=== PATIENT | female | born 1940 | race Hispanic/Latino ===

== ENCOUNTER 2019-11-19 15:53 | Emergency (ER) | payer MEDICARE ==
[~2019-11-19] VITALS: Ht 154.9 cm; Wt 58.1 kg
[2019-11-19 17:46] LABS: BASOPHILS # (AUTO) 0.1 (0.0-0.1); BASOPHILS % 0.9 % (0.0-1.0); EOSINOPHILS # (AUTO) 0.2 (0.0-0.4); EOSINOPHILS % 1.8 % (0.0-6.0); HEMATOCRIT 38.9 % (34.2-44.1); HEMOGLOBIN 12.7 g/dL (12.0-16.0); LYMPHOCYTES # (AUTO) 1.8 (1.0-3.2); LYMPHOCYTES % 21.5 % (18.0-39.1); MEAN CORPUSCULAR HGB CONC 32.6 g/dL (31-35); MONOCYTES # (AUTO) 0.6 (0.2-0.8); MONOCYTES % 7.1 % (4.4-11.3); NEUTROPHILS # (AUTO) 5.6 (2.1-6.9); NEUTROPHILS % 68.5 % (38.7-80.0); PLATELET COUNT 321 x10e3/uL (140-360); RED BLOOD COUNT 4.23 x10e6/uL (3.6-5.1); RED CELL DISTRIBUTION WIDTH 14.1 % (11.7-14.4)
[2019-11-19 17:59] LABS: CLARITY,URINE SL CLOUDY (CLEAR); COLOR,URINE YELLOW (YELLOW); LEUKOCYTE ESTERASE ,URINE SMALL (NEGATIVE); NITRITE,URINE NEGATIVE (NEGATIVE); PROTEIN,URINE DIPSTICK 1+ (NEGATIVE)
[2019-11-19 18:00] LABS: ALANINE AMINOTRANSFERASE 13 IU/L (0-55); ALBUMIN 4.2 g/dL (3.5-5.0); ALBUMIN/GLOBULIN RATIO 1.2 (0.8-2.0); ALKALINE PHOSPHATASE 68 IU/L (40-150); ANION GAP 14.2 mmol/L (8-16); BILIRUBIN,URINE NEGATIVE (NEGATIVE); BLOOD UREA NITROGEN 14 mg/dL (7-26); BUN/CREATININE RATIO 18 (6-25); CARBON DIOXIDE 28 mmol/L (22-29); CHLORIDE 101 mmol/L (98-107); CREATININE, SERUM 0.77 mg/dL (0.57-1.11); EST GLOMERULAR FILTRATION RATE > 60 ML/MIN (60-); GLUCOSE 156 mg/dL (74-118); KETONES,URINE NEGATIVE (NEGATIVE); POTASSIUM 4.2 mmol/L (3.5-5.1); PREGNANCY TEST, URINE NEGATIVE (NEGATIVE); SODIUM 139 mmol/L (136-145); URINE UROBILINOGEN 0.2 mg/dL (0.2 - 1)
[2019-11-19 18:07] LABS: BACTERIA,URINE RARE /HPF; EPITHELIAL CELLS,URINE FEW /LPF
--- NOTE | 2019-11-19 18:47 | Emergency Department Note ---
History of Present Illnes History of Present Illness Chief Complaint: Genitourinary History of Present Illness This is a 79 year old female arrived to the ED with complaints of blood in her urine. Patient states she has been treated for UTIs in the past month with no resolution of symptoms. Patient states the bleeding is intermittent and she is worried that her UTI is not resolving. Patient denies any fever or chills or flank pain. Chief Complaint Comment PATIENT IN FROM HOME WITH COMPLAINTS OF UTI X 1 MONTH, STATES SHE FINISHED HER ANTIBIOTIC AND NOW SHE HAS BLOOD IN HER URINE. PATIENT APPEARS IN NO DISTRESS, RESP EVEN AND NONLABORED, RESP EVEN AND NONLABORED, ALSO WITH COMPLAINTS OF BURNING WITH URINATION, RATES PAIN 5/10 Historian: Patient Arrival Mode: Car Onset (how long ago): month(s) Radiation: Reports non-radiation Severity: mild Onset quality: gradual Duration (how long): month(s) Timing of current episode: constant Progression: worsening Chronicity: chronic Relieving factors: none Exacerbating factors: none (KOREY BECKFORD DO) Past Medical/Family History Physician Review I have reviewed the patient's past medical and family history. Any updates have been documented here. (KOREY BECKFORD DO) Past Medical History Recent Fever: No Clinical Suspicion of Infectio: No New/Unexplained Change in Ment: No Past Medical History: Hypertension, Cancer Other Medical History: KIDNEY CANCER Other Surgery: KIDNEY TUMOR REMOVAL LEFT HIP SURGERY (KOREY BECKFORD DO) Social History Smoking Cessation: Never Smoker Alcohol Use: None Any Illegal Drug Use: No TB Exposure/Symptoms: No Physically hurt or threatened: No (KOREY BECKFORD DO) Family History Family history of heart diseas: No (KOREY BECKFORD DO) Other Last Tetanus: UNKNOWN Any Pre-Existing Lines (PICC,: No Is patient up to date on immun: Yes Last Flu: 06/2019 Last Pneumovax: UNKNOWN (KOREY BECKFORD DO) Review of Systems Review of Systems Constitutional: Reports no symptoms EENTM: Reports no symptoms Cardiovascular: Reports no symptoms Respiratory: Reports no symptoms Gastrointestinal: Reports no symptoms Genitourinary: Reports as per HPI Musculoskeletal: Reports no symptoms Integumentary: Reports no symptoms Neurological: Reports no symptoms Psychological: Reports no symptoms Endocrine: Reports no symptoms Hematological/Lymphatic: Reports no symptoms Review of other systems: All other systems negative (KOREY BECKFORD, ) Physical Exam Related Data Allergies: Coded Allergies: No Known Allergies (Unverified , 11/19/19) Triage Vital Signs Vital Signs Date Time Temp Pulse Resp B/P (MAP) Pulse Ox O2 Delivery O2 Flow Rate FiO2 11/19/19 16:30 98.1 86 16 151/74 97 Vital signs reviewed: Yes (KOREY BECKFORD, ) Physical Exam CONSTITUTIONAL Constitutional: Present well-developed, Present well-nourished HENT HENT: Present normocephalic, Present atraumatic, Present oropharynx clear/moist, Present nose normal HENT L/R: Present left ext ear normal, Present right ext ear normal EYES Eyes: Reports PERRL, Reports conjunctivae normal NECK Neck: Present ROM normal PULMONARY Pulmonary: Present effort normal, Present breath sounds normal CARDIOVASCULAR Cardiovascular: Present regular rhythm, Present heart sounds normal, Present capillary refill normal, Present normal rate GASTROINTESTINAL Abdominal: Present soft, Present nontender, Present bowel sounds normal GENITOURINARY Genitourinary: Present exam deferred SKIN Skin: Present warm, Present dry MUSCULOSKELETAL Musculoskeletal: Present ROM normal NEUROLOGICAL Neurological: Present alert, Present oriented x 3, Present no gross motor or sensory deficits PSYCHOLOGICAL Psychological: Present mood/affect normal, Present judgement normal (KOREY BECKFORD, ) Results Laboratory Result Diagram: 11/19/19 1732 11/19/19 1732 Laboratory Laboratory Tests Test 11/19/19 17:32 White Blood Count 8.17 x10e3/uL (4.8-10.8) Red Blood Count 4.23 x10e6/uL (3.6-5.1) Hemoglobin 12.7 g/dL (12.0-16.0) Hematocrit 38.9 % (34.2-44.1) Mean Corpuscular Volume 92.0 fL (81-99) Mean Corpuscular Hemoglobin 30.0 pg (28-32) Mean Corpuscular Hemoglobin Concent 32.6 g/dL (31-35) Red Cell Distribution Width 14.1 % (11.7-14.4) Platelet Count 321 x10e3/uL (140-360) Neutrophils (%) (Auto) 68.5 % (38.7-80.0) Lymphocytes (%) (Auto) 21.5 % (18.0-39.1) Monocytes (%) (Auto) 7.1 % (4.4-11.3) Eosinophils (%) (Auto) 1.8 % (0.0-6.0) Basophils (%) (Auto) 0.9 % (0.0-1.0) Neutrophils # (Auto) 5.6 (2.1-6.9) Lymphocytes # (Auto) 1.8 (1.0-3.2) Monocytes # (Auto) 0.6 (0.2-0.8) Eosinophils # (Auto) 0.2 (0.0-0.4) Basophils # (Auto) 0.1 (0.0-0.1) Absolute Immature Granulocyte (auto 0.02 x10e3/uL (0-0.1) Urine Color Yellow (YELLOW) Urine Clarity Sl cloudy (CLEAR) Urine pH 5.5 (5 - 7) Urine Specific [place] 1.025 (1.010-1.025) Urine Protein 1+ (NEGATIVE) Urine Glucose (UA) 1+ (NEGATIVE) Urine Ketones Negative (NEGATIVE) Urine Blood Small (NEGATIVE) Urine Nitrite Negative (NEGATIVE) Urine Bilirubin Negative (NEGATIVE) Urine Urobilinogen 0.2 mg/dL (0.2 - 1) Urine Leukocyte Esterase Small (NEGATIVE) Urine RBC 6-10 /HPF (0-5) Urine WBC 6-10 /HPF (0-5) Urine Epithelial Cells Few /LPF (NONE) Urine Bacteria Rare /HPF (NONE) Urine Test Negative (NEGATIVE) Sodium Level 139 mmol/L (136-145) Potassium Level 4.2 mmol/L (3.5-5.1) Chloride Level 101 mmol/L (98-107) Carbon Dioxide Level 28 mmol/L (22-29) Anion Gap 14.2 mmol/L (8-16) Blood Urea Nitrogen 14 mg/dL (7-26) Creatinine 0.77 mg/dL (0.57-1.11) Estimat Glomerular Filtration Rate > 60 ML/MIN (60-) BUN/Creatinine Ratio 18 (6-25) Glucose Level 156 mg/dL (74-118) Calcium Level 10.0 mg/dL (8.4-10.2) Total Bilirubin 0.8 mg/dL (0.2-1.2) Aspartate Amino Transf (AST/SGOT) 18 IU/L (5-34) Alanine Aminotransferase (ALT/SGPT) 13 IU/L (0-55) Alkaline Phosphatase 68 IU/L (40-150) Total Protein 7.8 g/dL (6.5-8.1) Albumin 4.2 g/dL (3.5-5.0) Globulin 3.6 g/dL (2.3-3.5) Albumin/Globulin Ratio 1.2 (0.8-2.0) Lab results reviewed: Yes (KOREY BECKFORD DO) Imaging Imaging results reviewed: Yes Impressions To be followed by Dr. Wilson (KOREY BECKFORD DO) Imaging results reviewed: Yes Impressions [place] [id number] Patient Name: ANU MUNGUIA MR #: [id number] : 1940 Age/Sex: 79/F Req #: [id number] Adm Physician: Ordered by: KOREY BECKFORD DO Report #: [id number] Location: ER Room/Bed: Procedure: CT/CT ABDOMEN/PELVIS W Exam Date: 11/19/19 Exam Time: 1929 REPORT STATUS: Signed EXAM: CT Abdomen and Pelvis WITH contrast INDICATION: Hematuria, bladder mass COMPARISON: None. TECHNIQUE: Abdomen and pelvis were scanned utilizing a multidetector helical scanner from the lung base to the pubic symphysis after administration of IV contrast. Coronal and sagittal reformations were obtained. Routine protocol was performed. Scan was performed when during portal venous phase. IV CONTRAST: 100 mL of Isovue 370 ORAL CONTRAST: None COMPLICATIONS: None RADIATION DOSE: Total DLP: 306 mGy*cm Estimated effective dose: (DLP x 0.015 x size factor) mSv CTDIvol has been reviewed. It is below the limits set by the Radiation Protocol Committee (RPC). Dose modulation, iterative reconstruction, and/or weight based adjustment of the mA/kV was utilized to reduce the radiation dose to as low as reasonably achievable. FINDINGS: LINES and TUBES: None. LOWER THORAX: Triple vessel coronary artery calcific atherosclerosis. HEPATOBILIARY: No focal hepatic lesions. There is intra- and extra- hepatic biliary dilation , the common bile duct is 2.1 cm in diameter. GALLBLADDER: Absent SPLEEN: No splenomegaly. PANCREAS: No focal masses or ductal dilatation. ADRENALS: No adrenal nodules KIDNEYS/URETERS: Kidneys enhance symmetrically. No hydronephrosis. Benign-appearing cysts. Left renal superior pole scarring/volume loss. No stones. A 1.5 cm soft tissue dense round lesion in the interpolar region of the left kidney. A smaller hypodensity in the interpolar region of the right kidney. GI TRACT: No abnormal distention, wall thickening, or evidence of bowel obstruction. Colonic diverticuli without diverticulitis. Appendix is normal. PELVIC ORGANS/BLADDER: Pessary device in place. Hysterectomy. No adnexal masses. Urinary bladder unremarkable. LYMPH NODES: No lymphadenopathy. VESSELS: Arterial vascular calcifications. PERITONEUM / RETROPERITONEUM: No free air or fluid. BONES: Osseous demineralization. Degenerative changes. Proximal left femoral hardware intact. SOFT TISSUES: Unremarkable. IMPRESSION: 1. An indeterminate 1.5 cm soft tissue dense round lesion in the left kidney, could be a benign or complicated cyst or neoplasm. Recommend nonemergent multiphase contrast enhanced renal mass MRI for further evaluation. Left renal superior pole scarring/volume loss. 2. Triple vessel coronary artery calcific atherosclerosis. 3. Dilated biliary tree is likely due to chronic benign reservoir effect from remote cholecystectomy, correlate for cholestasis. 4. Colonic diverticulosis without diverticulitis. Signed by: King Lau DO on 11/19/2019 8:43 PM Dictated By: KING LAU DO 42 Transcribed By: ANEUDY on 11/19/192042 COPY TO: KOREY BECKFORD DO~ (RADHA WILSON DO) Assessment & Plan Medical Decision Making MDM 79-year-old well-appearing pleasant female arrived to the ED with complaints of continued hematuria for several months. Patient with a history of kidney cancer and there is concerns of possible bladder malignancy/mass. Patient hemodynamically stable with a normal hemoglobin/hematocrit. Urinalysis reviewed which shows RBCs, WBCs leukoesterase. CT abdomen and pelvis ordered. Sign out given to Dr. Wilson to follow-up CT abdomen and pelvis and ultimate disposition of patient. (KOREY BECKFORD DO) MDM 79 yof with hematuria . CTS ordered to evaluate for malignancy and interstitial cystitis. Patient to be discharged to home with f/u with Urology . Rx Ciprofloxacin (RADHA WILSON DO) Assessment & Plan Final Impression: (1) Hematuria (KOREY BECKFORD DO) Depart Disposition: HOME, SELF-CARE Last Vital Signs Date Time Temp Pulse Resp B/P (MAP) Pulse Ox O2 Delivery O2 Flow Rate FiO2 11/19/19 18:33 72 18 144/86 99 11/19/19 17:47 96.6 (KOREY BECKFORD DO) KOREY BECKFORD DO Nov 19, 2019 18:29 RADHA IWLSON DO Nov 19, 2019 21:18
[2019-11-19] MEDS ORDERED: IOPAMIDOL 370 MG/ML 200 ML INFUS..BTL INJ ONE (19:20)
[2019-11-19] MEDS ORDERED: SODIUM CHLORIDE 0.9% 50ML 50 ML ONE (19:20)
--- NOTE | 2019-11-19 20:46 | Diagnostic Imaging Report ---
EXAM: CT Abdomen and Pelvis WITH contrast INDICATION: Hematuria, bladder mass COMPARISON: None. TECHNIQUE: Abdomen and pelvis were scanned utilizing a multidetector helical scanner from the lung base to the pubic symphysis after administration of IV contrast. Coronal and sagittal reformations were obtained. Routine protocol was performed. Scan was performed when during portal venous phase. IV CONTRAST: 100 mL of Isovue 370 ORAL CONTRAST: None COMPLICATIONS: None RADIATION DOSE: Total DLP: 306 mGy*cm Estimated effective dose: (DLP x 0.015 x size factor) mSv CTDIvol has been reviewed. It is below the limits set by the Radiation Protocol Committee (RPC). Dose modulation, iterative reconstruction, and/or weight based adjustment of the mA/kV was utilized to reduce the radiation dose to as low as reasonably achievable. FINDINGS: LINES and TUBES: None. LOWER THORAX: Triple vessel coronary artery calcific atherosclerosis. HEPATOBILIARY: No focal hepatic lesions. There is intra- and extra- hepatic biliary dilation , the common bile duct is 2.1 cm in diameter. GALLBLADDER: Absent SPLEEN: No splenomegaly. PANCREAS: No focal masses or ductal dilatation. ADRENALS: No adrenal nodules KIDNEYS/URETERS: Kidneys enhance symmetrically. No hydronephrosis. Benign-appearing cysts. Left renal superior pole scarring/volume loss. No stones. A 1.5 cm soft tissue dense round lesion in the interpolar region of the left kidney. A smaller hypodensity in the interpolar region of the right kidney. GI TRACT: No abnormal distention, wall thickening, or evidence of bowel obstruction. Colonic diverticuli without diverticulitis. Appendix is normal. PELVIC ORGANS/BLADDER: Pessary device in place. Hysterectomy. No adnexal masses. Urinary bladder unremarkable. LYMPH NODES: No lymphadenopathy. VESSELS: Arterial vascular calcifications. PERITONEUM / RETROPERITONEUM: No free air or fluid. BONES: Osseous demineralization. Degenerative changes. Proximal left femoral hardware intact. SOFT TISSUES: Unremarkable. IMPRESSION: 1. An indeterminate 1.5 cm soft tissue dense round lesion in the left kidney, could be a benign or complicated cyst or neoplasm. Recommend nonemergent multiphase contrast enhanced renal mass MRI for further evaluation. Left renal superior pole scarring/volume loss. 2. Triple vessel coronary artery calcific atherosclerosis. 3. Dilated biliary tree is likely due to chronic benign reservoir effect from remote cholecystectomy, correlate for cholestasis. 4. Colonic diverticulosis without diverticulitis. Signed by: King Lau DO on 11/19/2019 8:43 PM
== END 2019-11-19 21:45 | disposition home or self-care (01) ==
LOC: ER 15:53
DX: R31.9 Hematuria, unspecified (principal); I10 Essential (primary) hypertension; Z85.528 Personal history of other malignant neoplasm of kidney
CPT/HCPCS: 36415; 74177; 80053; 81001; 81025; 85025; 99283; Q9967

== ENCOUNTER 2020-04-02 12:19 | Emergency (ER) | payer MEDICARE ==
[~2020-04-02] VITALS: Ht 154.9 cm; Wt 58.1 kg
[2020-04-02 13:50] LABS: CLARITY,URINE TURBID (CLEAR); COLOR,URINE YELLOW (YELLOW); KETONES,URINE NEGATIVE (NEGATIVE); LEUKOCYTE ESTERASE ,URINE TRACE (NEGATIVE); NITRITE,URINE NEGATIVE (NEGATIVE); PROTEIN,URINE DIPSTICK 2+ (NEGATIVE); URINE UROBILINOGEN 0.2 mg/dL (0.2 - 1)
[2020-04-02 13:51] LABS: BILIRUBIN,URINE SMALL (NEGATIVE)
[2020-04-02 14:10] LABS: BACTERIA,URINE MODERATE /HPF; EPITHELIAL CELLS,URINE MODERATE /LPF
[2020-04-02 14:29] VITALS: BP 132/56
[2020-04-02] MEDS ORDERED: TRIMETHOPRIM/SULFAMETHOXAZOLE 160-800 MG TAB PO ONE (14:30)
[2020-04-02] MEDS ORDERED: BACTRIM DS TAB1 EACH PO (14:32)
== END 2020-04-02 14:35 | disposition home or self-care (01) ==
LOC: ER 12:35
DX: N39.0 Urinary tract infection, site not specified (principal); R30.0 Dysuria; I10 Essential (primary) hypertension; Z85.528 Personal history of other malignant neoplasm of kidney
CPT/HCPCS: 81001; 87086; 87186; 99283

== ENCOUNTER 2021-04-06 17:49 | Emergency (ER) | payer MEDICARE ==
[~2021-04-06] VITALS: Ht 154.9 cm; Wt 58.1 kg
[~2021-04-06 17:49] MED LIST: BACTRIM DS TAB1 EACH PO
[2021-04-06 19:15] LABS: CLARITY,URINE HAZY (CLEAR); COLOR,URINE AMBER (YELLOW); KETONES,URINE TRACE (NEGATIVE); LEUKOCYTE ESTERASE ,URINE LARGE (NEGATIVE); NITRITE,URINE POSITIVE (NEGATIVE); PROTEIN,URINE DIPSTICK 1+ (NEGATIVE); URINE UROBILINOGEN 1 mg/dL (0.2 - 1)
[2021-04-06 19:16] LABS: WBC,URINE (MAN) >50 /HPF (0-5)
[2021-04-06 19:23] LABS: BACTERIA,URINE MODERATE /HPF; RBC,URINE 21-50 /HPF (0-5)
[2021-04-06 19:24] LABS: AMORPHOUS SEDIMENT,URINE FEW (FEW); EPITHELIAL CELLS,URINE MODERATE /LPF; MUCUS,URINE FEW (RARE)
== END 2021-04-06 20:00 | disposition home or self-care (01) ==
LOC: ER 17:58
DX: N39.0 Urinary tract infection, site not specified (principal); K57.30 Diverticulosis of large intestine without perforation or abscess without bleeding
CPT/HCPCS: 74176; 81001; 99283

== ENCOUNTER 2021-05-28 11:00 | Emergency (ER) | payer MEDICARE ==
[~2021-05-28] VITALS: Ht 154.9 cm; Wt 58.1 kg
[2021-05-28 11:55] LABS: BASOPHILS # (AUTO) 0.1 (0.0-0.1); BASOPHILS % 0.8 % (0.0-1.0); EOSINOPHILS # (AUTO) 0.2 (0.0-0.4); EOSINOPHILS % 2.3 % (0.0-6.0); HEMOGLOBIN 12.9 g/dL (12.0-16.0); LYMPHOCYTES # (AUTO) 0.5 (1.0-3.2); LYMPHOCYTES % 5.2 % (18.0-39.1); MEAN CORPUSCULAR HEMOGLOBIN 30.6 pg (28-32); MEAN CORPUSCULAR HGB CONC 32.3 g/dL (31-35); MEAN CORPUSCULAR VOLUME 94.8 fL (81-99); MONOCYTES # (AUTO) 0.8 (0.2-0.8); MONOCYTES % 7.9 % (4.4-11.3); NEUTROPHILS # (AUTO) 8.2 (2.1-6.9); NEUTROPHILS % 83.4 % (38.7-80.0); PLATELET COUNT 334 x10e3/uL (140-360); RED BLOOD COUNT 4.22 x10e6/uL (3.6-5.1); RED CELL DISTRIBUTION WIDTH 13.2 % (11.7-14.4)
[2021-05-28 12:06] LABS: INR 0.85; PROTHROMBIN TIME 12.3 seconds (11.9-14.5)
[2021-05-28 12:13] LABS: ALBUMIN 4.1 g/dL (3.5-5.0); ALBUMIN/GLOBULIN RATIO 1.2 (0.8-2.0); ANION GAP 14.7 mmol/L (8-16); CALCIUM 9.8 mg/dL (8.4-10.2); CREATININE, SERUM 0.72 mg/dL (0.57-1.11); POTASSIUM 3.7 mmol/L (3.5-5.1)
[2021-05-28 12:22] LABS: CREATINE KINASE MB 1.3 ng/mL (0-5.0)
[2021-05-28 12:26] LABS: B-TYPE NATRIURETIC PEPTIDE2 89.8 pg/mL (0-100)
[2021-05-28 12:36] LABS: CLARITY,URINE CLEAR (CLEAR); COLOR,URINE YELLOW (YELLOW); KETONES,URINE NEGATIVE (NEGATIVE); LEUKOCYTE ESTERASE ,URINE NEGATIVE (NEGATIVE); NITRITE,URINE NEGATIVE (NEGATIVE); PROTEIN,URINE DIPSTICK 1+ (NEGATIVE); URINE UROBILINOGEN 0.2 mg/dL (0.2 - 1)
[2021-05-28 12:46] LABS: BACTERIA,URINE FEW /HPF; EPITHELIAL CELLS,URINE FEW /LPF; RBC,URINE 0-5 /HPF (0-5)
== END 2021-05-28 13:34 | disposition home or self-care (01) ==
LOC: ER 11:15
DX: U07.1 COVID-19 (principal); N39.0 Urinary tract infection, site not specified; I10 Essential (primary) hypertension; Z85.528 Personal history of other malignant neoplasm of kidney
CPT/HCPCS: 36415; 71045; 80053; 81001; 82550; 82553; 83605; 83880; 84484; 85025; 85610; 87040; 87086; 87186; 93005; 99284; U0002

== ENCOUNTER 2021-08-20 14:07 | Inpatient (IN) | payer MEDICARE ==
[~2021-08-20] VITALS: Ht 154.9 cm; Wt 58.1 kg
[2021-08-20] MEDS ORDERED: ONDANSETRON HCL INJ 2MG/ML 2ML 2 MG/ML VIAL IV STA (14:18)
[2021-08-20] MEDS ORDERED: SODIUM CHLORIDE 0.9% 1000ML 1,000 ML IV SCH (14:30)
[2021-08-20 14:43] LABS: BASOPHILS % 0.6 % (0.0-1.0); EOSINOPHILS % 0.6 % (0.0-6.0); HEMATOCRIT 40.2 % (34.2-44.1); HEMOGLOBIN 13.3 g/dL (12.0-16.0); LYMPHOCYTES # (AUTO) 0.3 (1.0-3.2); LYMPHOCYTES % 4.8 % (18.0-39.1); MEAN CORPUSCULAR HEMOGLOBIN 31.1 pg (28-32); MEAN CORPUSCULAR HGB CONC 33.1 g/dL (31-35); MEAN CORPUSCULAR VOLUME 94.1 fL (81-99); MONOCYTES # (AUTO) 0.4 (0.2-0.8); MONOCYTES % 6.7 % (4.4-11.3); NEUTROPHILS # (AUTO) 5.6 (2.1-6.9); NEUTROPHILS % 87.1 % (38.7-80.0); PLATELET COUNT 310 x10e3/uL (140-360); RED BLOOD COUNT 4.27 x10e6/uL (3.6-5.1); RED CELL DISTRIBUTION WIDTH 14.2 % (11.7-14.4)
[2021-08-20 15:08] LABS: ALBUMIN 3.9 g/dL (3.5-5.0); ALBUMIN/GLOBULIN RATIO 1.2 (0.8-2.0); CALCIUM 8.6 mg/dL (8.4-10.2); CREATININE, SERUM 0.81 mg/dL (0.57-1.11)
[2021-08-20 15:15] LABS: CREATINE KINASE MB 0.7 ng/mL (0-5.0)
[2021-08-20 15:57] LABS: CLARITY,URINE CLOUDY (CLEAR); COLOR,URINE BROWN (YELLOW); KETONES,URINE TRACE (NEGATIVE); LEUKOCYTE ESTERASE ,URINE SMALL (NEGATIVE); NITRITE,URINE NEGATIVE (NEGATIVE); PROTEIN,URINE DIPSTICK 2+ (NEGATIVE); URINE UROBILINOGEN 0.2 mg/dL (0.2 - 1)
[2021-08-20 16:09] LABS: AMORPHOUS SEDIMENT,URINE MANY (FEW); BACTERIA,URINE FEW /HPF; RBC,URINE 0-5 /HPF (0-5); WBC,URINE (MAN) 0-5 /HPF (0-5)
[2021-08-20] MEDS ORDERED: IBUPROFEN 400 MG TAB PO ONE (17:45)
[2021-08-20] MEDS: SODIUM CHLORIDE 0.9% 1000ML 1,000 ML IV SCH (18:00)
[2021-08-20] MEDS ORDERED: Morphine 4mg Syringe 4 MG/ML INJ IV PRN (18:00)
[2021-08-20] MEDS ORDERED: ONDANSETRON HCL INJ 2MG/ML 2ML 2 MG/ML VIAL IV PRN (18:00)
[2021-08-20] MEDS: IBUPROFEN 400 MG TAB PO PRN (19:08)
[2021-08-20 20:00] VITALS: BP 168/61
[2021-08-20] MEDS ORDERED: HYDRALAZINE HCL 20 MG/ML VIAL IV PRN (20:30)
[2021-08-20] MEDS: METRONIDAZOLE 500MG/NS 100ML 100 ML IV SCH ×2 (21:25→22:00)
[2021-08-20] MEDS: FAMOTIDINE 20 MG/2 ML VIAL IV SCH (21:26)
[2021-08-20 21:44] VITALS: BP 168/61
[2021-08-20 21:54] VITALS: BP 168/61
[2021-08-20 23:06] LABS: CREATINE KINASE MB 0.5 ng/mL (0-5.0)
[2021-08-21] VITALS (9 sets, daily range): BP systolic 99–146; BP diastolic 41–67
[2021-08-21] MEDS: SODIUM CHLORIDE 0.9% 1000ML 1,000 ML IV SCH ×3 (03:08→17:10)
[2021-08-21] MEDS: METRONIDAZOLE 500MG/NS 100ML 100 ML IV SCH ×3 (05:13→22:56)
[2021-08-21 06:11] LABS: BASOPHILS % 0.5 % (0.0-1.0); EOSINOPHILS % 0.2 % (0.0-6.0); HEMATOCRIT 38.8 % (34.2-44.1); HEMOGLOBIN 12.6 g/dL (12.0-16.0); LYMPHOCYTES # (AUTO) 0.7 (1.0-3.2); LYMPHOCYTES % 10.1 % (18.0-39.1); MEAN CORPUSCULAR HEMOGLOBIN 31.3 pg (28-32); MEAN CORPUSCULAR HGB CONC 32.5 g/dL (31-35); MEAN CORPUSCULAR VOLUME 96.3 fL (81-99); MONOCYTES # (AUTO) 0.6 (0.2-0.8); MONOCYTES % 8.9 % (4.4-11.3); NEUTROPHILS # (AUTO) 5.3 (2.1-6.9); PLATELET COUNT 282 x10e3/uL (140-360); RED BLOOD COUNT 4.03 x10e6/uL (3.6-5.1); RED CELL DISTRIBUTION WIDTH 14.5 % (11.7-14.4)
[2021-08-21 06:20] LABS: INR 0.98; PROTHROMBIN TIME 13.9 seconds (11.9-14.5)
[2021-08-21 06:25] LABS: ALBUMIN 3.2 g/dL (3.5-5.0); ANION GAP 9.5 mmol/L (8-16); CALCIUM 8.3 mg/dL (8.4-10.2); CREATININE, SERUM 0.7 mg/dL (0.57-1.11); POTASSIUM 3.5 mmol/L (3.5-5.1)
[2021-08-21 06:56] LABS: CREATINE KINASE MB 0.7 ng/mL (0-5.0)
[2021-08-21] MEDS: FAMOTIDINE 20 MG/2 ML VIAL IV SCH ×2 (08:14→21:47)
[2021-08-21] MEDS: ENOXAPARIN SOD INJ 40 MG/0.4 ML SYR SC SCH (17:04)
[2021-08-22] VITALS (8 sets, daily range): BP systolic 121–163; BP diastolic 48–58
[2021-08-22] MEDS ORDERED: DULOXETINE HCL20 MG PO (01:44)
[2021-08-22] MEDS ORDERED: ATORVASTATIN CA40 MG PO (01:44)
[2021-08-22] MEDS ORDERED: NIFEDIPINE ER30 M1 PO (01:44)
[2021-08-22] MEDS ORDERED: DICYCLOMINE HCL 20 MG TAB PO ONE (01:45)
[2021-08-22] MEDS: METRONIDAZOLE 500MG/NS 100ML 100 ML IV SCH ×3 (05:19→21:14)
[2021-08-22] MEDS: SODIUM CHLORIDE 0.9% 1000ML 1,000 ML IV SCH ×2 (05:19→14:13)
[2021-08-22 05:29] LABS: BILIRUBIN,DIRECT 0.3 mg/dL (0.0-0.5); CALCIUM 7.8 mg/dL (8.4-10.2); CREATININE, SERUM 0.6 mg/dL (0.57-1.11); MAGNESIUM 1.5 MG/DL (1.3-2.1)
[2021-08-22] MEDS: DICYCLOMINE HCL 10 MG CAP PO SCH ×3 (08:18→21:11)
[2021-08-22] MEDS: FAMOTIDINE 20 MG/2 ML VIAL IV SCH ×2 (08:18→21:11)
[2021-08-22] MEDS ORDERED: POTASSIUM CHLORIDE 20 MEQ TAB CR PO ONE (11:00)
[2021-08-22] MEDS ORDERED: MAGNESIUM SULFATE 2GM/50ML 50 ML IV ONE (11:00)
[2021-08-22] MEDS: IBUPROFEN 400 MG TAB PO PRN (15:11)
[2021-08-22] MEDS: ENOXAPARIN SOD INJ 40 MG/0.4 ML SYR SC SCH (17:06)
[2021-08-22] MEDS ORDERED: LATANOPROST2.5 ML OP (19:50)
[2021-08-22] MEDS ORDERED: ATORVASTATIN 40 MG TAB PO SCH (21:00)
[2021-08-22] MEDS ORDERED: LATANOPROST(OPTH) 2.5 ML BTL OP SCH (21:00)
[2021-08-23] VITALS: BP 145/61
[2021-08-23] MEDS ORDERED: DICYCLOMINE HCL 20 MG TAB PO ONE
[2021-08-23] MEDS: SODIUM CHLORIDE 0.9% 1000ML 1,000 ML IV SCH ×2 (00:10→07:30)
[2021-08-23 04:00] VITALS: BP 106/51
[2021-08-23] MEDS: METRONIDAZOLE 500MG/NS 100ML 100 ML IV SCH ×2 (05:13→12:05)
[2021-08-23 06:26] LABS: ALBUMIN 3.1 g/dL (3.5-5.0); ALBUMIN/GLOBULIN RATIO 1.1 (0.8-2.0); ANION GAP 9.1 mmol/L (8-16); CALCIUM 7.9 mg/dL (8.4-10.2); CREATININE, SERUM 0.57 mg/dL (0.57-1.11); POTASSIUM 3.1 mmol/L (3.5-5.1)
[2021-08-23 07:49] VITALS: BP 161/61
[2021-08-23 07:52] VITALS: BP 161/61
[2021-08-23] MEDS: FAMOTIDINE 20 MG/2 ML VIAL IV SCH (08:01)
[2021-08-23] MEDS ORDERED: DICYCLOMINE HCL 10 MG CAP PO SCH (09:00)
[2021-08-23] MEDS ORDERED: ONDANSETRON HCL 4 MG ORAL DISINTEGRATING TAB PO PRN (11:30)
[2021-08-23 11:39] VITALS: BP 161/55
[2021-08-23] MEDS ORDERED: POTASSIUM CHLORIDE 10MEQ EA PO ONE (12:30)
[2021-08-23] MEDS ORDERED: DEXTROSE 50% SYRINGE 50 ML IV PRN (13:45)
[2021-08-23] MEDS ORDERED: INSULIN REGULAR, HUMAN 100 UNIT/1 ML SQ SCH (16:30)
== END 2021-08-23 15:25 | disposition home or self-care (01) | DRG 392 ==
LOC: ER 14:46 → ERHOLD 17:52 → MED/SURG2 19:49
PROVIDERS: ADMIT Internal Medicine; ATTEND Internal Medicine
DX: A08.4 Viral intestinal infection, unspecified (principal); E11.9 Type 2 diabetes mellitus without complications; I10 Essential (primary) hypertension; E78.5 Hyperlipidemia, unspecified; R74.8 Abnormal levels of other serum enzymes; R74.01 Elevation of levels of liver transaminase levels; Z86.73 Personal history of transient ischemic attack (TIA), and cerebral infarction without residual deficits; Z91.81 History of falling; Z87.440 Personal history of urinary (tract) infections; Z20.822 Contact with and (suspected) exposure to COVID-19; Z90.49 Acquired absence of other specified parts of digestive tract; Z86.010 Personal history of colon polyps
CPT/HCPCS: 36415; 70450; 71045; 72125; 74177; 80048; 80053; 80076; 81001; 82270; 82550; 82553; 82948; 83605; 83630; 83735; 84484; 85025; 85610; 87040; 87045; 87493; 93005; 94799; 99251; 99284; J1650; J2405; J3475; J7030; U0002

== ENCOUNTER 2021-10-11 19:13 | Emergency (ER) | payer MEDICARE ==
[~2021-10-11] VITALS: Ht 307.3 cm; Wt 58.1 kg
[~2021-10-11 19:13] MED LIST changes: +ATORVASTATIN CA40 MG PO; +DULOXETINE HCL20 MG PO; +LATANOPROST2.5 ML OP; +NIFEDIPINE ER30 M1 PO
[2021-10-11 19:54] LABS: CLARITY,URINE CLEAR (CLEAR); COLOR,URINE YELLOW (YELLOW); KETONES,URINE NEGATIVE (NEGATIVE); LEUKOCYTE ESTERASE ,URINE NEGATIVE (NEGATIVE); NITRITE,URINE NEGATIVE (NEGATIVE); PROTEIN,URINE DIPSTICK NEGATIVE (NEGATIVE); URINE UROBILINOGEN 0.2 mg/dL (0.2 - 1)
[2021-10-11 20:07] LABS: BACTERIA,URINE MODERATE /HPF; EPITHELIAL CELLS,URINE MANY /LPF; TRANSITIONAL EPI CELLS,URINE FEW
[2021-10-11] MEDS ORDERED: BACTRIM DS TAB1 EACH PO (20:11)
== END 2021-10-11 20:40 | disposition home or self-care (01) ==
LOC: ER 19:26
DX: R30.0 Dysuria (principal); N39.0 Urinary tract infection, site not specified; I10 Essential (primary) hypertension; E11.9 Type 2 diabetes mellitus without complications; Z85.528 Personal history of other malignant neoplasm of kidney; Z96.642 Presence of left artificial hip joint
CPT/HCPCS: 81001; 87086; 93005; 99283

== ENCOUNTER 2024-01-12 18:10 | Emergency (ER) | payer MEDICARE ==
[~2024-01-12] VITALS: Ht 154.9 cm; Wt 58.1 kg
[~2024-01-12 18:10] MED LIST changes: +CEFDINIR300 MG PO
[2024-01-12 18:19] VITALS: PULSE 71; RESP 18; TEMP 98.3
[2024-01-12 18:31] LABS: BASOPHILS # (AUTO) 0.1 (0.0-0.1); BASOPHILS % 0.7 % (0.0-1.0); EOSINOPHILS # (AUTO) 0.2 (0.0-0.4); EOSINOPHILS % 2.9 % (0.0-6.0); HEMATOCRIT 35.9 % (34.2-44.1); HEMOGLOBIN 11.6 g/dL (12.0-16.0); LYMPHOCYTES # (AUTO) 1.6 (1.0-3.2); LYMPHOCYTES % 22.1 % (18.0-39.1); MEAN CORPUSCULAR HGB CONC 32.3 g/dL (31-35); MONOCYTES # (AUTO) 0.5 (0.2-0.8); MONOCYTES % 6.6 % (4.4-11.3); NEUTROPHILS # (AUTO) 4.9 (2.1-6.9); NEUTROPHILS % 67.6 % (38.7-80.0); PLATELET COUNT 305 x10e3/uL (140-360); RED BLOOD COUNT 3.74 x10e6/uL (3.6-5.1); RED CELL DISTRIBUTION WIDTH 13.3 % (11.7-14.4)
[2024-01-12 18:49] LABS: ANION GAP 14.5 mmol/L (8-16); CALCIUM 9.6 mg/dL (8.4-10.2); CREATININE, SERUM 0.87 mg/dL (0.57-1.11); POTASSIUM 4.5 mmol/L (3.5-5.1)
[2024-01-12] MEDS ORDERED: IOPAMIDOL 370 MG/ML 100 ML INFUS..BTL INJ ONE (19:13)
[2024-01-12] MEDS ORDERED: AUGMENTIN 500-1 EACH PO (20:58)
[2024-01-12 21:04] VITALS: BP 154/63; PULSE 71; RESP 17; TEMP 98.1; O2SAT 100
== END 2024-01-12 21:05 | disposition home or self-care (01) ==
LOC: ER 18:20
DX: H92.01 Otalgia, right ear (principal); H93.11 Tinnitus, right ear; I10 Essential (primary) hypertension; E11.65 Type 2 diabetes mellitus with hyperglycemia; Z85.528 Personal history of other malignant neoplasm of kidney
CPT/HCPCS: 36415; 70460; 80048; 85025; 99284; Q9967

== ENCOUNTER 2024-04-29 19:08 | Emergency (ER) | payer MEDICARE ==
[~2024-04-29] VITALS: Ht 154.9 cm; Wt 56.7 kg
[~2024-04-29 19:08] MED LIST changes: +AUGMENTIN 500-1 EACH PO
[2024-04-29 20:00] VITALS: PULSE 60; RESP 17; TEMP 98.4; O2SAT 100
[2024-04-29] MEDS ORDERED: AZITHROMYCIN250 MG PO (20:11)
== END 2024-04-29 20:23 | disposition home or self-care (01) ==
LOC: ER 19:15
DX: H92.01 Otalgia, right ear (principal); I10 Essential (primary) hypertension; E11.9 Type 2 diabetes mellitus without complications; Z85.528 Personal history of other malignant neoplasm of kidney
CPT/HCPCS: 99283

== ENCOUNTER 2024-07-10 11:50 | Emergency (ER) | payer MEDICARE ==
[~2024-07-10] VITALS: Ht 154.9 cm; Wt 56.7 kg
[~2024-07-10 11:50] MED LIST changes: +AZITHROMYCIN250 MG PO
[2024-07-10 11:51] VITALS: PULSE 86; RESP 16; TEMP 98.5; O2SAT 98
[2024-07-10 12:39] LABS: BILIRUBIN,URINE NEGATIVE (NEGATIVE); CLARITY,URINE HAZY (CLEAR); COLOR,URINE YELLOW (YELLOW); GLUCOSE, URINE NEGATIVE (NEGATIVE); KETONES,URINE NEGATIVE (NEGATIVE); LEUKOCYTE ESTERASE ,URINE NEGATIVE (NEGATIVE); NITRITE,URINE NEGATIVE (NEGATIVE); PH,URINE 5.5 (5 - 7); PROTEIN,URINE DIPSTICK TRACE (NEGATIVE); URINE UROBILINOGEN 0.2 mg/dL (0.2 - 1)
[2024-07-10 12:40] LABS: BACTERIA,URINE FEW /HPF; EPITHELIAL CELLS,URINE FEW /LPF; RBC,URINE 0-5 /HPF (0-5); WBC,URINE (MAN) 0-5 /HPF (0-5)
== END 2024-07-10 13:21 | disposition home or self-care (01) ==
LOC: ER 11:53
DX: H92.01 Otalgia, right ear (principal); H93.19 Tinnitus, unspecified ear; R30.0 Dysuria; I10 Essential (primary) hypertension; E11.9 Type 2 diabetes mellitus without complications; Z85.528 Personal history of other malignant neoplasm of kidney
CPT/HCPCS: 81001; 99282